=== PATIENT | male | born 1960 | race African-American/Black ===

== ENCOUNTER 2016-08-21 11:23 | Inpatient (IN) ==
[2016-08-21] MEDS ORDERED: ASPIRIN PO STA (11:26)
[2016-08-21 11:39] LABS: MANUAL DIFF NEEDED? NO
[2016-08-21 11:41] LABS: BASO% 0.4 % (0.0-0.8); EOS# 0.34 X1000 (0.0-0.7); EOS% 4.3 % (0.0-10.0); HEMATOCRIT 34.7 % (42.0-52.0); HEMOGLOBIN 11.3 g/dL (14.0-18.0); IMM GRAN# 0.07 X1000 (0.0-0.04); IMM GRAN% 0.9 % (0.0-0.5); LYMPH# 1.53 X1000 (1.2-3.4); LYMPH% 19.3 % (20.5-51.1); MCH 30.1 PG (27-31); MCHC 32.6 g/dL (33-37); MCV 92.3 FL (81-99); MONO# 0.56 X1000 (0.11-0.59); MONO% 7.1 % (1.7-9.3); MPV 10.2 FL (7.4-10.4); PLT 211 X1000 (130-400); RBC 3.76 XMIL (4.7-6.1)
[2016-08-21] MEDS ORDERED: DUONEB (A & A) ONE (11:43)
[2016-08-21] MEDS ORDERED: DOPAMINE 800 MG/D5W (PARKWAY ONLY!) 800 MG/250 ML IV.SOLN ONE (11:48)
[2016-08-21] MEDS ORDERED: DUONEB (A & A) INH ONE (11:50)
[2016-08-21] MEDS ORDERED: NS 1,000 ML ONE (11:51)
--- NOTE | 2016-08-21 11:55 | EKG Report ---
Test Performed on : 08/21/2016 11:27:26 AM Test Reason : VAN Blood Pressure : / mmHG Vent. Rate : 033 BPM Atrial Rate : 220 BPM P-R Int : 000 ms QRS Dur : 128 ms QT Int : 544 ms P-R-T Axes : 000 -61 134 degrees QTc Int : 402 ms Idioventricular rhythm. Left axis deviation Nonspecific intraventricular block Possible Anterolateral infarct , age undetermined Abnormal ECG When compared with ECG of 16-MAR-2016 15:43, Idioventricular rhythm. has replaced Atrial flutter. Vent. rate has decreased BY 27 BPM Unconfirmed Result
--- NOTE | 2016-08-21 11:56 | Diag Imaging Result Doc PS360 ---
EXAM: CHEST-2 VIEWS HISTORY: CP TECHNIQUE: AP semierect portable COMMENT: There is pleural fluid on the right including in the minor fissure. There is cardiomegaly. There is interstitial pulmonary edema particularly on the right. There are no previous studies. IMPRESSION: Cardiomegaly, mild pulmonary edema and right pleural effusion. Electronically signed by Kip Parikh 08/21/2016 11:54 AM
[2016-08-21 11:59] LABS: INR 2.47 (0.86-1.15); PROTIME 26.8 Seconds (12.1-15.5)
[2016-08-21 12:00] LABS: PTT PL 44.2 Seconds (22.6-43.9)
[2016-08-21] MEDS ORDERED: DOPAMINE 800 MG/D5W (PARKWAY ONLY!) 800 MG/250 ML IV.SOLN IV SCH (12:00)
[2016-08-21] MEDS ORDERED: D50W SYRINGE ONE (12:06)
[2016-08-21 12:07] LABS: ALBUMIN 3.4 g/dL (3.5-5.0); CALCIUM 7.7 mg/dL (8.8-10.2); MAGNESIUM 2.3 mg/dL (1.5-2.7); TOTAL BILIRUBIN 0.4 mg/dL (0.20-1.00); TOTAL PROTEIN 6.6 g/dL (6.3-8.3)
[2016-08-21 12:08] LABS: POTASSIUM 6.7 mmol/L (3.5-5.1)
[2016-08-21] MEDS ORDERED: CALCIUM GLUCONATE ONE (12:21)
[2016-08-21] MEDS ORDERED: NS ONE (12:21)
--- NOTE | 2016-08-21 12:46 | PROVIDER DOCUMENTATION ---
This chart was entered by Veena Veloz Scribe, acting as scribe for Suresh Wright MD. HPI-Cardiac General - General Stated Complaint: bradycardia Time Seen by Provider: 08/21/16 11:31 Source: patient, EMS Allergies/Adverse Reactions: Patient Allergies Allergy/AdvReac Type Severity Reaction Status Date / Time ondansetron HCl * Allergy ITCHING Verified 08/21/16 11:38 [From Zofran (as hydrochloride)] piperacillin sodium * Allergy ITCHING Verified 08/21/16 11:38 [From Zosyn] tazobactam sodium * Allergy ITCHING Verified 08/21/16 11:38 [From Zosyn] Home Medications: Home Medication List Medication Instructions Recorded Confirmed Last Taken Type Allopurinol 100 mg PO BID 03/16/16 08/21/16 07/26/16 20:00 History Aspirin 81 mg PO DAILY 03/16/16 08/21/16 3 Days Ago History Carvedilol 25 mg PO BID 03/16/16 08/21/16 07/27/16 07:00 History Clonidine [Catapres] 0.2 mg PO BID 03/16/16 08/21/16 07/26/16 20:00 History Diltiazem [Cardizem] 60 mg PO DAILY 03/16/16 08/21/16 07/20/16 History Fenofibrate 200 mg PO DAILY 03/16/16 08/21/16 07/26/16 20:00 History PRAVAstatin [Pravachol] 10 mg PO DAILY 03/16/16 08/21/16 07/26/16 20:00 History Sevelamer Carbonate [Renvela] 800 mg PO TID 03/16/16 08/21/16 07/26/16 20:00 History Warfarin [Coumadin] 5 mg PO QHS 03/16/16 08/21/16 07/24/16 History Doxepin [Silenor] 6 mg PO DAILY 08/21/16 08/21/16 Unknown History Furosemide 40 mg PO DAILY 08/21/16 08/21/16 Unknown History Oxycodone E.r. [Oxycontin] 10 mg PO Q4H PRN PRN 08/21/16 08/21/16 Unknown History Promethazine [Phenergan] 25 mg PO Q6H PRN PRN 08/21/16 08/21/16 Unknown History - History of Present Illness-Cardiac Nature of Presenting Problem: 56 yo M presents to the ER with complaint of slow HR and mild SOB. 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 Was given atropine in route. Has a wound vac to L leg, bilat BKA. On arrival HR is 23. Pt is a dialysis pt, missed and was supposed to go today. Onset/Duration: 1/2 hour ago Review of Systems - Adult - REVIEW OF SYSTEMS - ADULT Constitutional: denies: chills, fever Eyes: reports: no symptoms reported Ears, Nose, Mouth & Throat: reports: no symptoms reported Cardiovascular: reports: irregular heart rate. denies: chest pain, palpitations Respiratory: reports: shortness of breath. denies: cough Gastrointestinal: denies: diarrhea, nausea, vomiting Genitourinary: reports: no symptoms reported Musculoskeletal: reports: no symptoms reported Integumentary: reports: no symptoms reported Neurological: reports: no symptoms reported Psychiatric: reports: no symptoms reported Endocrine: reports: no symptoms reported Hematologic/Lymphatic: reports: no symptoms reported Allergic/Immunologic: reports: no symptoms reported All Other Systems: Reviewed and Negative Past History - Adult - PAST MEDICAL HISTORY-ADULT Review of Records: reports: Nursing Assessment Review, Medications Reviewed Cardiovascular: reports: A-Fib, CHF, HTN, IN (x 2), PVD Respiratory: reports: COPD Genitourinary: reports: dialysis (T//Tue), kidney disease - PRIOR SURGERIES/PROCEDURES Surgical/Procedure History: reports: cardiac stent (x 3), other (fistula left arm) - IMMUNIZATION STATUS Childhood Immunizations: See Nurse Assessment Flu Vaccine: See Nurse Assessment Physical Exam-General - PHYSICAL EXAM-ADULT Initial Vital Signs Reviewed: Yes - CONSTITUTIONAL General Appearance: alert, mild distress - EYES Eyes: PERRL/EOMI, pink conjunctivae - HEAD, EARS, NOSE, MOUTH & THROAT HENMT: normocephalic/atraumatic, normal ENT inspection - NECK Neck: supple, normal inspection - RESPIRATORY Respiratory: no respiratory distress, no accessory muscle use - CARDIOVASCULAR Cardiovascular: bradycardia - GASTROINTESTINAL (ABDOMEN) Abdominal Exam: normal bowel sounds, non tender, soft - MUSCULOSKELETAL Back Exam: no CVA tenderness, no vertebral tenderness Extremity: normal gait, normal inspection, other (bilat BKA, wound vac to L leg) Peripheral Pulses: radial (R): 2+, radial (L): 2+ - SKIN Integumentary: normal color, warm/dry - NEUROLOGIC Neurologic: grossly normal, no motor/sensory deficits - PSYCHIATRIC Psych/Mental Status: normal mood/affect, normal thought content, normal thought process, oriented x 3 Progress - PLAN OF CARE/RESULTS Progress/Plan/Lab Results: Vital Signs - 8 hr 08/21/16 11:25 08/21/16 11:29 08/21/16 11:34 Pulse Rate 25 L 47 L 51 L Respiratory Rate 20 25 H 20 Blood Pressure 103/65 108/78 113/82 O2 Sat by Pulse Oximetry 100 100 100 08/21/16 11:36 08/21/16 11:53 08/21/16 12:30 Pulse Rate 55 L 30 L 64 Respiratory Rate 13 16 31 H Blood Pressure 102/67 125/69 O2 Sat by Pulse Oximetry 100 100 99 Laboratory Results - last 24 hr 08/21/16 08/21/16 08/21/16 11:30 11:30 11:30 WBC RBC Hgb Hct MCV MCH MCHC RDW Std Deviation Plt Count MPV Immature Gran % (Auto) Neut % (Auto) Lymph % (Auto) [place] % (Auto) Eos % (Auto) Baso % (Auto) Immature Gran # (Auto) Neut # (Auto) Lymph # (Auto) [place] # (Auto) Eos # (Auto) Baso # (Auto) PT INR APTT (Factor Assay) D-Dimer Sodium 134 L Potassium 6.7 H* Chloride 98 Carbon Dioxide 17 L Anion Gap 19 BUN 95 H Creatinine 10.4 H* Estimated GFR/1.73 m2 5 BUN/Creatinine Ratio 9 Glucose 162 H Calculated Osmolality 301 Calcium 7.7 L Magnesium 2.3 Total Bilirubin 0.40 AST 12 ALT 9 L Alkaline Phosphatase 27 L Creatine Kinase 118 Troponin T 0.220 H [id number]-[id number] Pept > 89589 H Total Protein 6.6 Albumin 3.4 L Globulin 3.0 Albumin/Globulin Ratio 1.0 08/21/16 08/21/16 11:30 11:30 WBC 7.94 RBC 3.76 L Hgb 11.3 L Hct 34.7 L MCV 92.3 MCH 30.1 MCHC 32.6 L RDW Std Deviation 16.6 H Plt Count 211 MPV 10.2 Immature Gran % (Auto) 0.9 H Neut % (Auto) 68.0 Lymph % (Auto) 19.3 L [place] % (Auto) 7.1 Eos % (Auto) 4.3 Baso % (Auto) 0.4 Immature Gran # (Auto) 0.07 H Neut # (Auto) 5.41 Lymph # (Auto) 1.53 [place] # (Auto) 0.56 Eos # (Auto) 0.34 Baso # (Auto) 0.03 PT 26.8 H INR 2.47 H APTT (Factor Assay) 44.2 H D-Dimer 0.71 H Sodium Potassium Chloride Carbon Dioxide Anion Gap BUN Creatinine Estimated GFR/1.73 m2 BUN/Creatinine Ratio Glucose Calculated Osmolality Calcium Magnesium Total Bilirubin AST ALT Alkaline Phosphatase Creatine Kinase Troponin T Bhm-I-Mkgswidyvrq Pept Total Protein Albumin Globulin Albumin/Globulin Ratio Orders Category Date Time Status Cardiac Monitoring DIRECTED Care 08/21/16 11:26 Active Saline Loc NOW Care 08/21/16 11:26 Active CHEST-2 VIEWS [RAD] Stat Exams 08/21/16 11:26 Completed CBC WITH ELECTRONIC DIFF [HEME] Stat Lab 08/21/16 11:30 Completed CK PROFILE [SP CHEM] Stat Lab 08/21/16 11:30 Completed COMPREHENSIVE METABOLIC PANEL [CHEM] Stat Lab 08/21/16 11:30 Completed D-DIMER PL [COAG] Stat Lab 08/21/16 11:30 Completed MAGNESIUM [CHEM] Stat Lab 08/21/16 11:30 Completed PRO B-NATRIURETIC PEPTIDE Stat Lab 08/21/16 11:30 Completed PR[address]IME WITH INR PL [COAG] Stat Lab 08/21/16 11:[address] [COAG] Stat Lab 08/21/16 11:30 Completed TROPONIN T Stat Lab 08/21/16 11:30 Completed 0.9% Sodium Chloride Inj [Ns] Med 08/21/16 12:21 Discontinued 100 ml .ROUTE .STK-MED ONE 0.9% Sodium Chloride Inj [Ns] 1,000 ml Med 08/21/16 11:51 Discontinued .ROUTE As Directed Albuterol 2.5MG/Ipratrop 0.5MG [Duoneb (A & A)] Med 08/21/16 11:43 Discontinued 15 ml .ROUTE .STK-MED ONE Albuterol 2.5MG/Ipratrop 0.5MG [Duoneb (A & A)] Med 08/21/16 11:50 Discontinued 15 ml INH NOW ONE Aspirin Med 08/21/16 11:26 Discontinued 325 mg PO STAT STA Calcium Gluconate Med 08/21/16 12:21 Discontinued 1 gm .ROUTE .STK-MED ONE Dextrose 50% Syringe [D50w Syringe] Med 08/21/16 12:06 Discontinued 50 ml .ROUTE .STK-MED ONE Dopamine 800 mg/D5w ([place]) [Dopamine 800 mg/D5w ( Med 08/21/16 11:48 Discontinued [place] Only!)] 800 mg in 250 ml .ROUTE As Directed Dopamine 800 mg/D5w ([place]) [Dopamine 800 mg/D5w ( Med 08/21/16 12:00 Active [place] Only!)] 800 mg in 250 ml IV As Directed Aerosol Treatments Stat Oth 08/21/16 11:50 Completed EKG [EKG] Stat Ther 08/21/16 11:26 Draft 1216 - Dr Cifuentes requesting pt to go directly to dialysis at , then he will decide whether pt needs a ICU bed or floor bed Result Diagrams: 08/21/16 11:30 08/21/16 11:30 - EKG 1 Time of EKG reading by physician:: 11:37 EKG Read and Signed by:: Suresh Wright EKG Interpretation (*Must complete 3 of following elements*): Abnormal ( nonspecific intraventricular block, possible anterolateral infarct) Rate: 33 Rhythm: idioventricular rhythm [place]: left QRS: normal NE Interval: normal ST Wave: normal - XRAY 1 XRAY Study: Chest Impression: Abnormal (cardiomegaly, mild pulmonary edema and R pleural effusion. Per radiologist) - CONSULTS/PCP/HOSPITALIST Notification #1 *Consult/PCP/Hospitalist*: Dr. Mcmullen (public relations senior associate) Time Discussed: 11:54 #2 Consult: Dr. Cifuentes Time Discussed: 12:03 Reason/Comments: Send to for dialysis Departure - Departure Date of Disposition Decision: 08/21/16 Time of Disposition Decision: 12:44 DIAGNOSIS: Bradycardia, Hyperkalemia Renal failure Qualifiers: Renal failure chronicity: chronic Chronic kidney disease stage: on chronic dialysis Qualified Code(s): N18.6 - End stage renal disease; Z99.2 - Dependence on renal dialysis Disposition: ADMITTED INPATIENT 09 Certified Medical Emergency: Emergent Condition: Critical Referrals and Follow-Ups: None,PCP [Primary Care Provider] - - Critical Care Note This patient required my direct & personal management of CC.: Yes Total Time (mins): 60 Critical Care Statement: This patient required my direct personal management to treat or rule out processes, the absence of which, could potentiallly result in sudden, clinically significant life or limb threatening deterioration. This chart was documented by the indicated scribe, (Veena Veloz Scribe) and accurately reflects the services I performed and decisions made by me, Suresh Wright MD, as attested by the provider's signature.
[2016-08-21] MEDS ORDERED: NS 2,000 ML MISC PRN (14:42)
[2016-08-21] MEDS ORDERED: ATROPINE SYRINGE ONE (16:07)
[2016-08-21] MEDS ORDERED: SODIUM BICARBONATE 8.4% ONE (16:07)
--- NOTE | 2016-08-21 16:22 | PROGRESS NOTE ---
DATE: 08/21/2016 Today Mr. Benton presented to [facility] because of acute onset of dizziness and near blacking out. He called paramedics and upon presentation he was found to have very low pulse and was given atropine in route. Upon reaching the [facility] he had a pulse of 25 beats per minute with extremely abnormal EKG. The patient is in end-stage renal disease who failed to go to dialysis on and was fixing to go today but then felt very bad so he came here. The patient was started on the dopamine drip. However I saw him just about 2 minutes ago, he is doing fine. He is now off the dopamine drip almost 1 hour to go in his renal replacement therapy and he is doing a lot better. He said he does not feel any more dizzy and he feels he is back to his normal self. OBJECTIVE: Vital Signs: Blood pressure is 135/69, pulse of 64, respiration is 16. ASSESSMENT: 1. Dizziness/near syncope secondary to cardiac arrhythmia. 2. Hyperkalemia induced cardiac arrhythmia. 3. History of atrial fibrillation. 4. End stage renal disease on hemodialysis Tuesdays, and Saturdays. 5. Fluid overload. 6. Congestive heart failure both systolic and diastolic dysfunction. Ejection fraction is 50- 55%. 7. Dilated cardiomyopathy with mild global hypokinesis. Possible underlying coronary artery disease. 8. 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 So in general Mr. Benton is doing a lot better. He is now off the pressors and he is almost finishing his renal replacement therapy. We are going to admit him overnight and monitor his heart. Repeat an EKG tomorrow morning. Hopefully discharge him if everything is fine. He has been counseled to be very compliant with his therapy. cc: Richie Paredes MD
--- NOTE | 2016-08-21 16:45 | HISTORY AND PHYSICAL ---
CHIEF COMPLAINT: Shortness of breath. HISTORY OF PRESENT ILLNESS: This is a 56-year-old, morbidly obese, gentleman with a history of end-stage renal disease, currently on hemodialysis, atrial fibrillation, congestive heart failure, and COPD. He presented to the emergency room complaining of shortness of breath. Evidently the patient underwent a left BKA recently and had been doing well, having home health come out daily, stating his heart rates have been in the 60s and blood pressures have been stable. The states that he went to bed feeling his normal last night. This morning, just prior to calling EMS, he told her that he just did not feel good. He was found to have heart rate of 23 on arrival to the emergency room for which she was given 0.5 of atropine by EMS en route. Heart rates did increase to the 40s and 50s, with blood pressures staying 103-120/60-80 range. He was noted to have a potassium of 6.7, with a creatinine of 10.4. Of note, the patient is a Tuesday, , Tuesday dialysis patient. He did miss 's dialysis as well as today's. In the emergency room he was given Albuterol neb as well as an amp of D50 and a gram of calcium gluconate. Dopamine was started per the ER physician and he has been transferred to [facility] via EMS for emergent dialysis. PAST MEDICAL HISTORY: End-stage renal disease on Tuesday, , Tuesday dialysis. Hypertension. CAD status post [place] x2. Obstructive sleep apnea. PAST SURGICAL HISTORY: Bilateral BKA. Hernia repair. SOCIAL HISTORY: Denies alcohol, tobacco, or illicit drug use. ALLERGIES: Zofran which causes itching, and Zosyn which causes itching. HOME MEDICATIONS: A list will be obtained. REVIEW OF SYSTEMS: Pertinent positives are stated in the HPI. All others are negative per the . PHYSICAL EXAMINATION: GENERAL: This is a 56-year-old, morbidly obese, gentleman, who is sitting in the bed in mild distress. VITAL SIGNS: Blood pressure is 120/69 with a heart rate ranging from 50-62, respirations are 20- 22, with O2 saturations of 99% on 6 L nasal cannula. HEENT: Head is normocephalic, atraumatic. Mucous membranes are moist. NECK: Supple. Trachea midline. CARDIOVASCULAR: He is bradycardic. PULMONARY: Breath sounds are diminished with no increased work of breathing noted. GASTROINTESTINAL: Abdomen is large, nontender, with bowel sounds in all 4 quadrants. EXTREMITIES: Upper extremities have pulses that are 2+. He has bilateral BKA with a wound VAC noted to his left leg. NEUROLOGIC: He is alert. He is oriented. He is cooperative. DIAGNOSTICS: Chest x-ray reveals cardiomegaly, mild pulmonary edema, and right pleural effusion. LABS: WBC is 7.9, with a hemoglobin of 11.3, hematocrit 34.7, and platelets of 211,000. INR is 2.4. Sodium is 134, potassium 6.7, with a chloride of 98, CO2 of 17, BUN 95, and creatinine 10.4. Glucose is 162. Troponin is 0.022, with a proBNP greater than 35,000. ASSESSMENT: 1. Bradycardia. 2. Hyperkalemia. 3. End-stage renal disease, on hemodialysis, having missed 2 dialysis treatments, one and one today. 4. Insulin-dependent diabetes. 5. Coronary artery disease status post myocardial infarction x2. 6. History of obstructive sleep apnea. 7. Elevated troponin. PLAN: We will transfer the patient to [facility] to undergo emergent dialysis. Dr. Cifuentes will be consulted home medicines and any medical management, as well as Dr. Mcmullen, Cardiology. We will hold all medications at present. As the patient has had recent surgery, does have a wound VAC to his left BKA, sepsis could be a possible component to this. We will obtain blood cultures which can be drawn at dialysis. We will consult General Surgery. Antibiotic management per Dr. Cifuentes. Further treatments pending hospital course. Dictated by HARRISON Millard for Liang Johnson MD cc: HARRISON Millard MD
[2016-08-21] MEDS ORDERED: ULTRAM PO PRN (20:54)
[2016-08-22 06:25] LABS: CALCIUM 7.7 mg/dL (8.8-10.2)
[2016-08-22 06:57] LABS: POTASSIUM 6.6 mmol/L (3.5-5.1)
--- NOTE | 2016-08-22 08:42 | Diag Imaging Result Doc PS360 ---
EXAM: CHEST-PORTABLE HISTORY: dyspnea TECHNIQUE: AP portable at 0815 COMMENT: There is cardiomegaly. There is hazy opacity over the right base. There is less fluid in the minor fissure on the right than on 08/21/2016. Otherwise has been no significant change. IMPRESSION: Pulmonary edema versus pneumonia particularly right lower lobe. Cardiomegaly. Electronically signed by Kip Parikh 08/22/2016 8:40 AM
--- NOTE | 2016-08-22 08:51 | CONSULTATION ---
DATE OF CONSULTATION: 08/22/2016 CHIEF COMPLAINT: Left below-knee stump with a wound VAC. HISTORY: This is a 56-year-old black gentleman with end-stage renal disease, who was admitted with bradycardia. He has a known BKA amputation done by Dr. Ferrer in [place] in March. He, however, is followed by Dr. Coleman who has debrided his left BK stump in the wound center and saw him most recently a week ago. He is not scheduled to see Dr. Coleman again for 3 weeks. [facility] see him at home and changes his wound VAC 3 times a week. PAST MEDICAL HISTORY: His other medical problems include atrial fibrillation, congestive heart failure, COPD, hypertension, ischemic heart disease, and sleep apnea. PAST SURGICAL HISTORY: Includes a hernia repair as well as bilateral leg amputations. MEDICATIONS: Listed. SOCIAL HISTORY: She denies tobacco usage. ALLERGIES: Zosyn and Zofran. REVIEW OF SYSTEMS: As noted above. PHYSICAL EXAMINATION: Vital Signs: He is afebrile, heart rate 86, respiratory rate 17, blood pressure 171/92. General: He is sitting up in bed. He has bilateral breath sounds. Heart: Regular rate and rhythm. He has a fistula in his left upper arm that has flow. He has BKA stumps. Wound VAC is noted on the left BK stump. There is no evidence of erythema, induration, or drainage. It is nontender. LABS: White count is 7,900. ASSESSMENT: Jorag-ulc-thty amputation stump for which he is followed by Dr. Coleman. PLAN: Will be to leave the wound VAC in place. Notify Dr. Coleman on the that Mr. Benton is present in the hospital. cc: MD Richie Mcdaniel MD
[2016-08-22] MEDS ORDERED: HEPARIN ONE (11:21)
[2016-08-22] MEDS ORDERED: NS 2,000 ML ONE (11:21)
[2016-08-22] MEDS ORDERED: HEPARIN IV PRN (12:12)
[2016-08-22] MEDS ORDERED: NS 2,000 ML MISC PRN (12:12)
[2016-08-22] MEDS ORDERED: CATAPRES PO ONE (12:55)
[2016-08-22] MEDS ORDERED: CATAPRES ONE (12:57)
[2016-08-22 15:25] VITALS: BP 151/82
--- NOTE | 2016-08-22 15:45 | PROGRESS NOTE ---
DATE: 08/22/2016 SUBJECTIVE: He is seen on dialysis. No symptoms currently. OBJECTIVE: Vital signs: Blood pressure 175/96, heart rate 96. General: He is in no distress. Neck: Veins not distended. Heart: Regular. Extremities: Have trace edema. No clubbing or cyanosis. IMPRESSION: End-stage kidney disease with hyperkalemia. Continue dialysis for 3 hours today with a 2 potassium bath. Attend his next routine dialysis on Tuesday. cc: MD Richie Mosley MD
[2016-08-22] MEDS ORDERED: IMODIUM PO ONE (16:13)
--- NOTE | 2016-08-22 18:29 | CONSULTATION ---
DATE OF CONSULTATION: 08/22/2016 REASON FOR CONSULTATION: ESRD and assistance with management. HISTORY OF PRESENT ILLNESS: Mr. Benton is a 56-year-old black man who is known to me from the outpatient arena. He has diabetes, peripheral vascular disease, hypertension, coronary disease, obstructive sleep apnea. He has had a recent surgery on his left leg. BKA. He currently has a wound VAC because he has an open wound. He missed treatment on because he had problems with his leg and had to go to the doctor. He states when he was getting up to go to dialysis on Tuesday he had a profound sense of malaise with dizziness and profound weakness. He had himself evaluated by EMS who found him to be profoundly bradycardic with a heart rate of 23. He was treated medically and transferred to the emergency room. Evaluation found potassium of 6.7. He was treated with calcium, insulin, albuterol and transferred directly from the [facility] to [facility] where he was dialyzed. This morning, his potassium remained elevated at 6.7, though his heart rate was normal. Because his potassium remained markedly elevated, we arranged to dialyze him again today. He is currently on dialysis. He has no symptoms at this time. He has been able to eat. No chest pain, palpitation, shortness of breath, chills, fevers, etc. No nausea or vomiting. No change in his bowel function. PAST MEDICAL HISTORY: As above. HOME MEDICATIONS: Include clonidine, pravastatin, sevelamer, fenofibrate, warfarin, aspirin, allopurinol, carvedilol, diltiazem, oxycodone, furosemide, doxepin, promethazine, tramadol. ALLERGIES: Piperacillin, ondansetron, tazobactam. SOCIAL HISTORY: He is and lives with his . No alcohol or tobacco. FAMILY HISTORY: Noncontributory. PHYSICAL EXAMINATION: Vital Signs: Blood pressure 159/92, heart rate 73, respiration 18, afebrile. General: He is in no acute distress. Skin: Warm and dry. Conjunctivae are pink. Neck: Neck veins are not visible. Trachea is midline. Heart: Regular without gallops. Lungs: Have equal breath sounds. No crackles. Abdomen: Soft, nontender. Bowel sounds are present. Extremities: Have minimal edema. No clubbing or cyanosis. There is a wound VAC on the left BKA stump. Neurologic Exam: Grossly nonfocal. LABORATORY DATA: Sodium 138, potassium 6.6, chloride 102, bicarbonate 19, BUN 65, creatinine 7.6. Hemoglobin 11.3. IMPRESSION: 1. Life-threatening hyperkalemia. His potassium is still elevated today but his symptoms are improved. He will have his 2nd hemodialysis treatment today with a 2 potassium bath for 3 hours. He will attend his routine dialysis at [facility] on Tuesday. 2. Bradycardia. Potassium is likely the primary cause. However, I would be reluctant for him to go back out of the hospital on a combination of carvedilol and diltiazem. Perhaps replace diltiazem with a dihydropyridine calcium channel angelica and decrease his carvedilol dose. I will discuss this with the primary team. 3. Medication review. Fenofibrate is not appropriate for ESRD patient so we will advise discontinuation. 4. Anemia, in target. cc: MD Richie Mosley MD
--- NOTE | 2016-08-23 05:28 | EKG Report ---
Test Performed on : 08/22/2016 10:39:34 AM Test Reason : arrythmia Blood Pressure : / mmHG Vent. Rate : 077 BPM Atrial Rate : 077 BPM P-R Int : 000 ms QRS Dur : 088 ms QT Int : 402 ms P-R-T Axes : 000 000 196 degrees QTc Int : 454 ms junctional rythm Nonspecific T wave abnormality Abnormal ECG When compared with ECG of 21-AUG-2016 11:27, (Unconfirmed) Current undetermined rhythm precludes rhythm comparison, needs review Confirmed by Sharri Verdin MD ([id number]) on 08/23/2016 9:18:20 AM
--- NOTE | 2016-08-23 06:27 | DISCHARGE SUMMARY ---
ADMISSION DATE: 08/21/2016 DISCHARGE DATE: 08/22/2016 INVASIVE PROCEDURES DONE DURING THIS ADMISSION: None. IMAGING STUDIES OF SIGNIFICANCE: 1. A chest x-ray was done on presentation which showed cardiomegaly, mild pulmonary edema, edema, and right pleural effusion. 2. A repeat chest x-ray was done today which shows pretty much the same. 3. An electrocardiogram which was done on present on presentation did show a flutter with very low ventricular response. DISPOSITION: Home. FOLLOWUP: Sen Cifuentes MD CONSULTATION DURING THIS ADMISSION: 1. Nephrology was consulted. Patient was seen by Sen Cifuentes MD. 2. Surgery was consulted. Patient was seen by Wong Juan MD. ADMISSION DIAGNOSES: 1. Bradycardia. 2. Hyperkalemia. 3. End stage renal disease. 4. Insulin-dependent. DIAGNOSIS AT THE TIME OF DISCHARGE: 1. Dizziness and near syncope secondary to cardiac arrhythmia. 2. Hyperkalemia induced cardiac arrhythmia. 3. History of chronic atrial fibrillation. 4. End stage renal disease on hemodialysis Tuesday, , and Tuesday. 5. Fluid overload. 6. Congestive heart failure with both systolic and diastolic dysfunction. Ejection fraction of 50-55%. 7. Dilated cardiomyopathy with mild global hypokinesis. Possible underlying coronary artery disease. 8. 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 DISCHARGE MEDICATIONS: 1. Clonidine 0.2 b.i.d. 2. Pravastatin 10 mg daily. 3. Sevelamer 800 mg 3 times per day. 4. Aspirin 81 mg daily. 5. Allopurinol 100 mg b.i.d. 6. Furosemide 40 mg daily. 7. Amlodipine 10 mg daily. 8. Carvedilol 12.5 b.i.d. 9. Coumadin 5 mg at hs. MEDICATIONS THAT HAVE BEEN DISCONTINUED: 1. Fenofibrate. 2. Diltiazem has been discontinued. MEDICATIONS THAT HAVE BEEN CHANGED: Carvedilol has been reduced to 12.5 b.i.d. PRESENTING COMPLAINT: Shortness of breath. HISTORY OF PRESENTING COMPLAINT: Mr. Benton is a 56-year-old gentleman, who has endstage renal disease on hemodialysis. The patient refers that he did not go to dialysis on because his wound was looking pretty bad. On Tuesday, he was preparing to go to dialysis but then he felt very weak and dizzy and almost passed out. Also had some shortness of breath. The patient went to call EMS and was found to have a heart rate in the 20s. Patient was sent to [facility], where initial pulse rate was 25. The patient was given some medications and was transferred over here for immediate dialysis. HOSPITAL COURSE: Patient did pretty well. His potassium on admission was 6.7. EKG consistent with hypercalcemia induced changes, which was adequately treated. Pulse improved and the patient had two dialysis in a row. His potassium today is 6.6, but I spoke with the Multimedia Editor, Dr. Cifuentes, and he is with the opinion that patient can be discharged once he finishes the second run of hemodialysis. This morning, I saw Mr. Benton in dialysis. He refers to be doing a whole lot better, completely asymptomatic. A repeat electrocardiogram has been reviewed and unremarkable. The patient is clinically stable today. His vitals reveal blood pressure is 159/92, pulse of 72, respirations 18, temperature 98.4 degrees. He is going to be discharged home in a stable condition. We will follow up with surgery on his feet and Dr. Cifuentes for his end-stage renal disease and also electrolyte management. TIME SPENT FOR DISCHARGE: Thirty-seven minutes. cc: Richie Paredes MD
[2016-08-23] MEDS ORDERED: NORVASC PO SCH (09:00)
== END 2016-08-22 17:40 | disposition home health service (06) ==
LOC: P.ED 11:23 → 4N 16:55
PROVIDERS: ADMIT Internal Medicine; ATTEND Internal Medicine